=== PATIENT | female | born 2000 | race Caucasian/White ===

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

== ENCOUNTER 2024-01-24 06:27 | Emergency (ER) | payer OTHER ==
[2024-01-24 06:45] VITALS: TEMP 97.4; O2SAT 100
[2024-01-24 06:50] LABS: HCG URINE TEST NEGATIVE (NEGATIVE)
[2024-01-24 06:50] LABS: Appearance Cloudy (Clear); Bilirubin Negative (Negative); Blood Negative (Negative); Glucose, Urine Negative (Negative); Ketones Negative (Negative); Leukocyte Esterase Negative (Negative); Nitrite Negative (Negative); Protein,Urine Dip Negative (Negative); Specific Gravity 1.025 (1.005-1.030)
[2024-01-24 06:55] LABS: Bacteria None Seen /HPF (None Seen); Epithelial Cells None Seen /HPF (None Seen); Hyaline Casts NONE SEEN /LPF (0-2); RBC 0-2 /HPF (0-5); WBC 0-2 /HPF (0-5)
[2024-01-24 06:57] LABS: ADD URINE CULTURE? NO (NO)
[2024-01-24] MEDS ORDERED: ZOFRAN ODT 4 MG ONE (07:42)
[2024-01-24] MEDS: ZOFRAN ODT 4 MG PO ONE (07:43)
[2024-01-24 07:47] VITALS: BP 105/69; PULSE 70; RESP 17
--- NOTE | 2024-01-24 07:47 | ERPHSYRPT ---
- History of Present Illness Time Seen by Provider: 01/24/24 07:15 Source: patient, family Exam Limitations: no limitations Patient Subjective Stated Complaint: Period cramps Triage Nursing Assessment: Patient ambulated back to ED and transferred self to bed. Patient A+O X3. Patient's skin pink, warm and dry. Patient complains of menstrual cramps to lower abdomen/pelvic area 10/10. Patient states the pain started 0300 and patient got into hot bath. Patient states she was having N/V and was afraid she was going to pass out. Physician History: This is a 23-year-old white female patient who has been having significant menstrual cramping over the last year. She has not yet seen a block placer. 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 She is currently on her menstrual period. She did not take any Tylenol or ibuprofen this morning because she felt to nauseated. Patient is declining intravenous line placement and IV fluids. She is also declining obtaining blood work or CT scan of her abdomen and pelvis. She just wants her urine checked for a urinary tract infection. Timing/Duration: worse, other (Chronic monthly for a year during the time of her menstrual period) Activites at Onset: none Quality: cramping Onset Location: suprapubic (Bilaterally) Pain Radiation: none Severity of Pain-Max: moderate Severity of Pain-Current: mild Prior abdominal problems: none Sexual intercourse history: non-contributory Modifying Factors: Improves With: vomiting (Once this morning) Associated Symptoms: abdominal pain (In the area of her ovaries bilaterally) Allergies/Adverse Reactions: cephalexin Allergy (Verified 01/24/24 06:35) Rash Sulfa (Sulfonamide Antibiotics) Allergy (Verified 01/24/24 06:35) Hx Tetanus, Diphtheria Vaccination/Date Given: Yes Hx Influenza Vaccination/Date Given: No Hx Pneumococcal Vaccination/Date Given: No Travel Risk - International Travel Have you traveled outside of the country in past 3 weeks: No - Emerging Infectious Disease Are you exhibiting symptoms associated with any current EIDs: No - Review of Systems Constitutional: No Symptoms Eyes: No Symptoms Ears, Nose, & Throat: No Symptoms Respiratory: No Symptoms Cardiac: No Symptoms Abdominal/Gastrointestinal: Other (Mild tenderness bilateral lower quadrants last suprapubic regions) Genitourinary Symptoms: No Symptoms Musculoskeletal: No Symptoms Skin: No Symptoms Neurological: No Symptoms Psychological: No Symptoms Endocrine: No Symptoms Hematologic/Lymphatic: No Symptoms - Past Medical History Pertinent Past Medical History: No Neurological History: No Pertinent History ENT History: No Pertinent History Cardiac History: No Pertinent History Respiratory History: No Pertinent History Endocrine Medical History: No Pertinent History Musculoskeletal History: No Pertinent History GI Medical History: No Pertinent History History: No Pertinent History Psycho-Social History: No Pertinent History Female Reproductive Disorders: No Pertinent History - Past Surgical History Past Surgical History: No Neuro Surgical History: No Pertinent History Cardiac: No Pertinent History Respiratory: No Pertinent History Gastrointestinal: No Pertinent History Genitourinary: No Pertinent History Musculoskeletal: No Pertinent History Female Surgical History: No Pertinent History - Female History Hx Last Menstrual Period: currently Hx Now: No - Social History Smoking Status: Never smoker Exposure to second hand smoke: Yes Drug Use: none Patient Lives Alone: No - Nursing Vital Signs Nursing Vital Signs: Initial Vital Signs Temperature 97.4 F 01/24/24 06:36 Pulse Rate 72 01/24/24 06:36 Respiratory Rate 18 01/24/24 06:36 Blood Pressure 110/72 01/24/24 06:36 O2 Sat by Pulse Oximetry 100 01/24/24 06:36 Pain Scale Pain Intensity 10 - Physical Exam General Appearance: no apparent distress, alert, anxiety, thin Eye Exam: PERRL/EOMI, eyes nml inspection Ears, Nose, Throat Exam: normal ENT inspection, moist mucous membranes Neck Exam: normal inspection, non-tender, supple, full range of motion Respiratory Exam: normal breath sounds, lungs clear, airway intact, No chest tenderness, No respiratory distress Cardiovascular Exam: regular rate/rhythm, normal heart sounds, normal peripheral pulses Gastrointestinal/Abdomen Exam: soft, normal bowel sounds, tenderness (Mild tenderness overlying her ovaries bilaterally without rebound) Pelvic Exam: not done Rectal Exam: not done Back Exam: normal inspection, normal range of motion, No CVA tenderness, No vertebral tenderness Extremity Exam: normal inspection, normal range of motion, pelvis stable Neurologic Exam: alert, oriented x 3, 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, 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, normal mood/affect, nml cerebellar function, nml station & gait, sensation nml Skin Exam: normal color, warm, dry Lymphatic Exam: No adenopathy SpO2 Interpretation: normal SpO2: 100 O2 Delivery: Room Air - Course Nursing assessment & vital signs reviewed: Yes Ordered Tests: Active Orders 24 hr Category Date Time Status HCG QUALITATIVE, URINE Stat Lab 01/24/24 06:49 Completed UA W/RFX UR CULTURE Stat Lab 01/24/24 06:42 Completed Medication Summary Discontinued Medications Generic Name Dose Route Start Last Admin Trade Name Fe PRN Reason Stop Dose Admin Ondansetron HCl 4 mg 01/24/24 07:38 Zofran 4 Mg/Udtablet Orally Disintegrating PO 01/24/24 07:39 STAT ONE Lab/Rad Data: Laboratory Results 01/24/24 01/24/24 Range/Units 06:49 06:42 Urine Color Yellow (Yellow) Urine Appearance Cloudy A (Clear) Urine pH 7.0 (4.6-8.0) Ur Specific [place] 1.025 (1.005-1.030) Urine Protein Negative (Negative) Urine Glucose (UA) Negative (Negative) mg/dL Urine Ketones Negative (Negative) Urine Blood Negative (Negative) Urine Nitrite Negative (Negative) Urine Bilirubin Negative (Negative) Urine Urobilinogen 1.0 A (0.2) mg/dL Ur Leukocyte Esterase Negative (Negative) U Hyaline Cast (Auto) NONE SEEN (0-2) /LPF Urine Microscopic RBC 0-2 (0-5) /HPF Urine Microscopic WBC 0-2 (0-5) /HPF Ur Epithelial Cells None Seen (None Seen) /HPF Urine Bacteria None Seen (None Seen) /HPF Urine Culture Reflexed NO (NO) Urine HCG, Qual NEGATIVE (NEGATIVE) - Progress Progress: improved Progress Note: 01/24/24 07:45 This patient's medical issue is 1 of low complexity. Patient's workup that was performed today is primarily based on patient's desire to only have a urinalysis performed. She does not want any intravenous line placement or intravenous fluid. She does not want any blood draws or CAT scan of the abdomen pelvis. Clinically, I do not feel she has an acute surgical abdomen but I did offer the above and she declines. She will except a single dose of Zofran and ODT. I interpreted the laboratory data results. Her urine is free of infection and free of evidence of dehydration. Patient is going to call her block placer today and make arrangements for follow-up appointment Blood Culture(s) Obtained: No Antibiotics given: No Counseled pt/family regarding: lab results, diagnosis, need for follow-up Medical Desision Making - Independent Historian Additional History obtained from: Family - Diagnostic Testing Diagnostic test were ordered, analyzed, and reviewed by me: Yes - Risk of complications The pt has a mod risk of morbidity or mortality based on: Need for prescription drug management - Departure Departure Disposition: Home Clinical Impression: Crampy pain associated with menses Condition: Stable Critical Care Time: No Referrals: BAILEY CARRIZALES NP [Primary Care Provider] - Follow up/PCP as directed Additional Instructions: Drink plenty of clear liquids prior to advancing your diet. Use Tylenol 650 mg orally every 4-6 hours as needed for pain control. In addition, may add 400 to 600 mg ibuprofen with food every 6-8 hours as needed for pain control. Call a block placer today, 01/24/2024, to make a follow-up appointment in the next 2 to 3 days. Return to the emergency department if symptoms worsen Prescriptions: Ondansetron ODT 4 MG [Zofran Odt 4 mg] 4 mg PO Q6H PRN PRN #10 tablet PRN Reason: Vomiting
== END 2024-01-24 07:45 | disposition home or self-care (01) ==
LOC: ED 06:27
DX: N94.6 Dysmenorrhea, unspecified (principal); R11.2 Nausea with vomiting, unspecified
CPT/HCPCS: 81001; 81025; 99283; Q0162

== ENCOUNTER 2024-06-15 05:12 | Emergency (ER) | payer OTHER ==
[2024-06-15 05:37] VITALS: TEMP 98.5
[2024-06-15] MEDS ORDERED: EMLA Cream 5 GM TP ONE (05:56)
[2024-06-15] MEDS ORDERED: XYLOCAINE 1% HCL 20 ML MDV ONE (05:56)
[2024-06-15] MEDS: EMLA Cream 5 GM TP ONE (05:59)
[2024-06-15] MEDS ORDERED: NORCO 5/325 MG ONE (06:57)
[2024-06-15] MEDS: XYLOCAINE 1% HCL 20 ML MDV IJ ONE (06:57)
--- NOTE | 2024-06-15 07:00 | ERPHSYRPT ---
- History of Present Illness Time Seen by Provider: 06/15/24 05:40 Source: patient, family Exam Limitations: no limitations Patient Subjective Stated Complaint: pt states she has swelling in her pelvic area, started approx 3 weeks ago and is very painful Triage Nursing Assessment: pt alert and oreinted. answers questions approp. pt ambulates to room with steady gait. respirations nonlabored. skin warm and dry. redness, warmth, tenderness, and firmness to rt labia. Physician History: This is a 23-year-old white female patient who has a known right vulvar Bartholin cyst. It is been present for 3 weeks and despite clindamycin and doxycycline antibiotics, the cyst is enlarging and is tender. Patient has never had anything like this in the past. Patient does not have fever or chills. Timing/Duration: week(s) (3), worse Quality: painful Severity: moderate Location: other (Right vulvar Bartholin cyst) Possible Causes: no cause identified Associated Symptoms: swelling/mass/lumps (Bartholin cyst, tender right vulva) Allergies/Adverse Reactions: cephalexin Allergy (Verified 06/15/24 05:37) Rash Sulfa (Sulfonamide Antibiotics) Allergy (Verified 06/15/24 05:37) Home Medications: Doxycycline Hyclate 100 mg [Vibramycin 100 MG] 100 mg PO BID 06/15/24 [History] Hx Tetanus, Diphtheria Vaccination/Date Given: Yes Hx Influenza Vaccination/Date Given: No Hx Pneumococcal Vaccination/Date Given: No Immunizations Up to Date: Yes Travel Risk - International Travel Have you traveled outside of the country in past 3 weeks: No - Emerging Infectious Disease Are you exhibiting symptoms associated with any current EIDs: No - Review of Systems Constitutional: No Symptoms Eyes: No Symptoms Ears, Nose, & Throat: No Symptoms Respiratory: No Symptoms Cardiac: No Symptoms Abdominal/Gastrointestinal: No Symptoms Genitourinary Symptoms: Other (Pain swelling right vulva) Musculoskeletal: No Symptoms Skin: No Symptoms Neurological: No Symptoms Psychological: No Symptoms Endocrine: No Symptoms Hematologic/Lymphatic: No Symptoms Immunological/Allergic: No Symptoms All Other Systems: Reviewed and Negative - Past Medical History Pertinent Past Medical History: No Neurological History: No Pertinent History ENT History: No Pertinent History Cardiac History: No Pertinent History Respiratory History: No Pertinent History Endocrine Medical History: No Pertinent History Musculoskeletal History: No Pertinent History GI Medical History: No Pertinent History History: No Pertinent History Psycho-Social History: No Pertinent History Female Reproductive Disorders: No Pertinent History - Past Surgical History Past Surgical History: No Neuro Surgical History: No Pertinent History Cardiac: No Pertinent History Respiratory: No Pertinent History Gastrointestinal: No Pertinent History Genitourinary: No Pertinent History Musculoskeletal: No Pertinent History Female Surgical History: No Pertinent History - Female History Hx Last Menstrual Period: 1st week may Hx Now: No - Social History Smoking Status: Never smoker Exposure to second hand smoke: Yes Drug Use: none Patient Lives Alone: No - Social Determinants of Health Will the patient participate in the screening: Declined to provide - Nursing Vital Signs Nursing Vital Signs: Initial Vital Signs Temperature 98.5 F 06/15/24 05:26 Pulse Rate 70 06/15/24 05:26 Respiratory Rate 18 06/15/24 05:26 Blood Pressure 126/78 06/15/24 05:26 O2 Sat by Pulse Oximetry 97 06/15/24 05:26 Pain Scale Pain Intensity 7 - Physical Exam General Appearance: mild distress, alert, anxiety, thin Eye Exam: PERRL/EOMI, eyes nml inspection Ears, Nose, Throat Exam: normal ENT inspection, moist mucous membranes Neck Exam: normal inspection, non-tender, supple, full range of motion Respiratory Exam: airway intact, No chest tenderness, No respiratory distress Gastrointestinal/Abdomen Exam: No tenderness Pelvic Exam: other (Right vulva tender swelling, abscess Bartholin cyst) Rectal Exam: not done Back Exam: normal inspection, normal range of motion, No CVA tenderness, No vertebral tenderness Extremity Exam: normal inspection, normal range of motion, pelvis stable Neurologic Exam: alert, oriented x 3, 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 Tender infected right vulva Bartholin cyst) Lymphatic Exam: No adenopathy SpO2 Interpretation: normal SpO2: 97 O2 Delivery: Room Air Procedures - Incision and Drainage Time of Procedure: 06:30 Site: Right vulva Bartholin cystinfected Anesthesia: 1% Lidocaine cc's of anesthesia: 2 (2.5 cc) Blade Size: 11 I & D Procedure: betadine prep, culture obtained Results: moderate amount pus Progress: Patient tolerated procedure well. Fluid was sent for culture and sensitivity. - Course Nursing assessment & vital signs reviewed: Yes Ordered Tests: Medication Summary Discontinued Medications Generic Name Dose Route Start Last Admin Trade Name Fe PRN Reason Stop Dose Admin Lidocaine HCl Confirm 06/15/24 05:56 Lidocaine Hcl 1% 20 Ml Mdv 20 Ml Ml Administered 06/15/24 05:57 Dose 3 ml .ROUTE .STK-MED ONE Lidocaine HCl 3 ml 06/15/24 06:10 Lidocaine Hcl 1% 20 Ml Mdv 20 Ml Ml IJ 06/15/24 06:11 STAT ONE Lidocaine/Prilocaine 2.5 gm 06/15/24 05:53 06/15/24 05:59 Lidocaine/Prilocaine 5 Gm 5 Gm Tube TP 06/15/24 05:54 2.5 gm STAT ONE Administration Lidocaine/Prilocaine Confirm 06/15/24 05:56 Lidocaine/Prilocaine 5 Gm 5 Gm Tube Administered 06/15/24 05:57 Dose 5 gm TP .STK-MED ONE - Progress Progress: improved, pain not gone completely, re-examined Progress Note: 06/15/24 06:59 My medical decision making and the assignment of low complexity to this patient's medical issue today is based on review of the patient's past medical history, review of the patient's medication list, review patient drug allergy list, history present illness and physical findings on examination. The fluid drained from the Bartholin cyst was sent for culture and sensitivity. No other laboratory radiographic studies are necessary. Counseled pt/family regarding: diagnosis, need for follow-up Medical Desision Making - Independent Historian Additional History obtained from: Family - Diagnostic Testing Diagnostic test were ordered, analyzed, and reviewed by me: Yes - Risk of complications The pt has a mod risk of morbidity or mortality based on: Need for prescription drug management - Departure Departure Disposition: Home Clinical Impression: Infected cyst of Bartholin gland duct Condition: Stable Critical Care Time: No Referrals: BAILEY CARRIZALES NP [Primary Care Provider] - Follow up/PCP as directed Additional Instructions: Sitz bath 3 times a day as discussed with either warm soapy water or warm Epsom salts. After each washing blot dry use a division chair to site. Do not apply lotion ointments or creams to the area. Add ibuprofen 600 mg orally 3 times a day for the next 5 days. Cover the site after each washing and drying with a terrence-pad. Call your primary care provider on 06/17/2024 to make arrange for follow-up to be seen in the next 2 to 3 days. Continue your antibiotics as prescribed Prescriptions: Hydrocodone/APAP 5/325 [[place] 5/325 mg] 1 each PO Q8H PRN PRN #6 tablet MDD 3 PRN Reason: Pain
[2024-06-15] MEDS: NORCO 5/325 MG PO ONE (07:01)
[2024-06-15] MEDS ORDERED: MORPHINE SULFATE 4 MG INJ ONE (07:33)
[2024-06-15] MEDS: MORPHINE SULFATE 4 MG INJ IM ONE (07:36)
[2024-06-15 07:54] VITALS: BP 132/99; PULSE 104; RESP 18
[2024-06-15 08:06] VITALS: O2SAT 98
== END 2024-06-15 08:23 | disposition home or self-care (01) ==
LOC: ED 05:12
DX: N75.0 Cyst of Bartholin's gland (principal); Z79.891 Long term (current) use of opiate analgesic; Z79.899 Other long term (current) drug therapy
CPT/HCPCS: 56420; 87070; 87077; 87186; 96372; 99283; J2270; A9270-GY

== ENCOUNTER 2024-06-15 23:14 | Emergency (ER) | payer OTHER ==
[2024-06-15 23:40] VITALS: PULSE 107; RESP 18; TEMP 98.7
[2024-06-16] MEDS ORDERED: MORPHINE SULFATE 4 MG INJ ONE (00:04)
[2024-06-16] MEDS ORDERED: Zofran 4 MG/2 ML VIAL ONE (00:04)
[2024-06-16] MEDS ORDERED: CLINDAMYCIN-D5W 600 MG/50 ML*** 600 MG/50 ML BAG IV ONE (00:04)
[2024-06-16 00:06] LABS: Absolute Neutrophil Ct (ANC) 12.32 x10^3/uL (1.56-6.13); BASOPHIL % 0.2 % (0.1-1.2); Basophil (Absolute #) 0.03 x10^3/uL (0.01-0.08); Eosinophil % 0.7 % (0.7-5.8); Eosinophil (Absolute #) 0.11 x10^3/uL (0.04-0.36); Hematocrit 36.1 % (34.1-44.9); IMMATURE GRAN # 0.05 x10^3u/L (0.001-0.031); IMMATURE GRAN % 0.3 % (0.001-0.429); Lymphocyte (Absolute #) 2.94 x10^3/uL (1.18-3.74); Lymphocytes % 17.6 % (19.3-51.7); Mean Cell Volume 96.8 fL (79.4-94.8); Mean Corpuscular Hemoglobin 32.2 pg (25.6-32.2); Mean Corpuscular Hgb Concent. 33.2 g/dL (32.2-35.5); Mean Platelet Volume 8.7 fL (9.4-12.3); Monocyte (Absolute #) 1.25 x10^3/uL (0.24-0.86); Monocytes % 7.5 % (4.7-12.5); Neutrophil % 73.7 % (34.0-71.1); Platelet Count 373 x10^3/uL (182-369); Red Blood Count 3.73 x10^6/uL (3.93-5.22); Red Cell Distribution Width 11.9 % (11.7-14.4); White Blood Count 16.7 x10^3/uL (3.98-10.04)
[2024-06-16] MEDS: Zofran 4 MG/2 ML VIAL IV ONE (00:06)
[2024-06-16] MEDS: CLINDAMYCIN-D5W 600 MG/50 ML*** 600 MG/50 ML BAG IV STA (00:06)
[2024-06-16] MEDS: MORPHINE SULFATE 4 MG INJ IV ONE (00:06)
[2024-06-16 00:19] LABS: ALBUMIN 4.5 g/dL (3.5-5.0); ANION GAP 13.6 MEQ/L (5-15); BILIRUBIN,TOTAL 0.3 mg/dL (0.2-1.3); Calcium 9.7 mg/dL (8.4-10.2); Creatinine 1 0.62 mg/dL (0.52-1.04); EST GLOMERULAR FILTRATION RATE 129.9 ML/MIN; HCG SERUM TEST NEGATIVE (NEGATIVE); Potassium 4.1 mmol/L (3.5-5.1); Total Protein 8.2 g/dL (6.3-8.2)
--- NOTE | 2024-06-16 01:12 | ERPHSYRPT ---
- History of Present Illness Time Seen by Provider: 06/15/24 23:19 Source: patient Exam Limitations: no limitations Patient Subjective Stated Complaint: pt states she was seen here early this morning and had an abscess in her pelvic region drained and was dignoased with a bartholin gland cyst pt reports increased swelling this evening that has caused concern. pt reports minimal drainage and pain at this time. pt reports sitz baths help with the pain. Triage Nursing Assessment: pt is aox3, pupils perrl, afebrile, resps easy and non labored, cap refill < 3 seconds, radial pulses strong and equal, abd soft non tender, pt skin pink warm dry. pt has significant swelling to the right labia major and minora, pt also has small incision with minimal sanguineous drainage to the distal right labia majora. Physician History: 23-year-old female with infected Bartholin cyst drained early this morning in this ER, was discharged on pain medications presented back with increased swelling and pain despite taking pain medication and doing sitz bath. Patient reports her swelling size has almost tripled then when she left. Patient denies any fever or chills. No abdominal pain. No difficulty urination. Allergies/Adverse Reactions: cephalexin Allergy (Verified 06/15/24 23:40) Rash Sulfa (Sulfonamide Antibiotics) Allergy (Verified 06/15/24 23:40) Home Medications: Doxycycline Hyclate 100 mg [Vibramycin 100 MG] 100 mg PO BID 06/15/24 [History] Hx Tetanus, Diphtheria Vaccination/Date Given: Yes Hx Influenza Vaccination/Date Given: No Hx Pneumococcal Vaccination/Date Given: No Travel Risk - International Travel Have you traveled outside of the country in past 3 weeks: No - Emerging Infectious Disease Are you exhibiting symptoms associated with any current EIDs: No - Review of Systems Constitutional: No Symptoms Ears, Nose, & Throat: No Symptoms Respiratory: No Symptoms Cardiac: No Symptoms Abdominal/Gastrointestinal: No Symptoms Genitourinary Symptoms: Other (Labial swelling) Musculoskeletal: No Symptoms Skin: Cellulitis, Induration, Skin Lesions Neurological: No Symptoms Endocrine: No Symptoms Hematologic/Lymphatic: No Symptoms - Past Medical History Pertinent Past Medical History: No Neurological History: No Pertinent History ENT History: No Pertinent History Cardiac History: No Pertinent History Respiratory History: No Pertinent History Endocrine Medical History: No Pertinent History Musculoskeletal History: No Pertinent History GI Medical History: No Pertinent History History: No Pertinent History Psycho-Social History: No Pertinent History Female Reproductive Disorders: No Pertinent History Other Medical History: bartholin cyst - Past Surgical History Past Surgical History: No Neuro Surgical History: No Pertinent History Cardiac: No Pertinent History Respiratory: No Pertinent History Gastrointestinal: No Pertinent History Genitourinary: No Pertinent History Musculoskeletal: No Pertinent History Female Surgical History: No Pertinent History - Female History Hx Last Menstrual Period: 1st week may Hx Now: No - Social History Smoking Status: Never smoker Exposure to second hand smoke: Yes Drug Use: none Patient Lives Alone: No - Social Determinants of Health Will the patient participate in the screening: Declined to provide - Nursing Vital Signs Nursing Vital Signs: Initial Vital Signs Temperature 98.7 F 06/15/24 23:14 Pulse Rate 107 H 06/15/24 23:14 Respiratory Rate 18 06/15/24 23:14 Blood Pressure 130/78 06/15/24 23:14 O2 Sat by Pulse Oximetry 99 06/15/24 23:14 Pain Scale Pain Intensity 5 - Physical Exam General Appearance: no apparent distress Ears, Nose, Throat Exam: normal ENT inspection Neck Exam: normal inspection, full range of motion Respiratory Exam: normal breath sounds, lungs clear Cardiovascular Exam: regular rate/rhythm, normal heart sounds Gastrointestinal/Abdomen Exam: soft, normal bowel sounds, No tenderness Pelvic Exam: other (Diffuse swelling of right labia majora and minora with some firm consistency. No discharge. Warm and very tender to touch.) Extremity Exam: normal inspection, normal range of motion Neurologic Exam: alert, oriented x 3, cooperative Skin Exam: normal color SpO2 Interpretation: normal SpO2: 97 O2 Delivery: Room Air Ordered Tests: Active Orders 24 hr Category Date Time Status Lactic Acid Stat Lab 06/15/24 23:37 Completed Medication Summary Discontinued Medications Generic Name Dose Route Start Last Admin Trade Name Freq PRN Reason Stop Dose Admin Clindamycin HCl/Dextrose 600 mg in 50 mls @ 100 mls/hr 06/15/24 23:40 06/16/24 00:58 Clindamycin-D5w 600 Mg/50 Ml IV 06/16/24 00:09 Infused STAT STA Infusion Clindamycin HCl/Dextrose Confirm 06/16/24 00:04 Clindamycin-D5w 600 Mg/50 Ml Administered 06/16/24 00:05 Dose 600 mg in 50 mls @ ud IV .STK-MED ONE Morphine Sulfate 4 mg 06/15/24 23:37 06/16/24 00:06 Morphine Sulfate 4 Mg/Ml Injection IV 06/15/24 23:38 4 mg STAT ONE Administration Morphine Sulfate Confirm 06/16/24 00:04 Morphine Sulfate 4 Mg/Ml Injection Administered 06/16/24 00:05 Dose 4 mg .ROUTE .STK-MED ONE Ondansetron HCl 4 mg 06/15/24 23:37 06/16/24 00:06 Ondansetron Hcl 4 Mg/2 Ml Vial IV 06/15/24 23:38 4 mg STAT ONE Administration Ondansetron HCl Confirm 06/16/24 00:04 Ondansetron Hcl 4 Mg/2 Ml Vial Administered 06/16/24 00:05 Dose 4 mg .ROUTE .STK-MED ONE Lab/Rad Data: Laboratory Result Diagrams 06/15/24 00:04 06/15/24 00:04 Laboratory Results 06/16/24 06/15/24 06/15/24 Range/Units 00:10 00:04 00:04 WBC (3.98-10.04) x10^3/uL RBC (3.93-5.22) x10^6/uL Hgb (11.2-15.7) g/dL Hct (34.1-44.9) % MCV (79.4-94.8) fL MCH (25.6-32.2) pg MCHC (32.2-35.5) g/dL RDW (11.7-14.4) % Plt Count (182-369) x10^3/uL MPV (9.4-12.3) fL Gran % (34.0-71.1) % Immature Gran % (Auto) (0.001-0.429) % Nucleat RBC Rel Count (0.00-0.2) % Eos # (Auto) (0.04-0.36) x10^3/uL Immature Gran # (Auto) (0.001-0.031) x10^3u/L Absolute Lymphs (auto) (1.18-3.74) x10^3/uL Absolute Monos (auto) (0.24-0.86) x10^3/uL Absolute Nucleated RBC (0.00-0.012) x10^3u/L Lymphocytes % (19.3-51.7) % Monocytes % (4.7-12.5) % Eosinophils % (0.7-5.8) % Basophils % (0.1-1.2) % Absolute Granulocytes (1.56-6.13) x10^3/uL Basophils # (0.01-0.08) x10^3/uL Sodium 138 (135-145) mmol/L Potassium 4.1 (3.5-5.1) mmol/L Chloride 100 (98-107) mmol/L Carbon Dioxide 28 (22-30) mmol/L Anion Gap 13.6 (5-15) MEQ/L BUN 11 (7-17) mg/dL Creatinine 0.62 (0.52-1.04) mg/dL Estimated GFR 129.9 ML/MIN Glucose 100 (74-106) mg/dL Lactic Acid 1.3 (0.4-2.0) Calcium 9.7 (8.4-10.2) mg/dL Total Bilirubin 0.30 (0.2-1.3) mg/dL AST 24 (14-36) U/L ALT 16 (0-35) U/L Alkaline Phosphatase 62 (38-126) U/L Serum Total Protein 8.2 (6.3-8.2) g/dL Albumin 4.5 (3.5-5.0) g/dL Serum HCG, Qual NEGATIVE (NEGATIVE) 06/15/24 Range/Units 00:04 WBC 16.7 H (3.98-10.04) x10^3/uL RBC 3.73 L (3.93-5.22) x10^6/uL Hgb 12.0 (11.2-15.7) g/dL Hct 36.1 (34.1-44.9) % MCV 96.8 H (79.4-94.8) fL MCH 32.2 (25.6-32.2) pg MCHC 33.2 (32.2-35.5) g/dL RDW 11.9 (11.7-14.4) % Plt Count 373 H (182-369) x10^3/uL MPV 8.7 L (9.4-12.3) fL Gran % 73.7 H (34.0-71.1) % Immature Gran % (Auto) 0.3 (0.001-0.429) % Nucleat RBC Rel Count 0.0 (0.00-0.2) % Eos # (Auto) 0.11 (0.04-0.36) x10^3/uL Immature Gran # (Auto) 0.05 H (0.001-0.031) x10^3u/L Absolute Lymphs (auto) 2.94 (1.18-3.74) x10^3/uL Absolute Monos (auto) 1.25 H (0.24-0.86) x10^3/uL Absolute Nucleated RBC 0.00 (0.00-0.012) x10^3u/L Lymphocytes % 17.6 L (19.3-51.7) % Monocytes % 7.5 (4.7-12.5) % Eosinophils % 0.7 (0.7-5.8) % Basophils % 0.2 (0.1-1.2) % Absolute Granulocytes 12.32 H (1.56-6.13) x10^3/uL Basophils # 0.03 (0.01-0.08) x10^3/uL Sodium (135-145) mmol/L Potassium (3.5-5.1) mmol/L Chloride (98-107) mmol/L Carbon Dioxide (22-30) mmol/L Anion Gap (5-15) MEQ/L BUN (7-17) mg/dL Creatinine (0.52-1.04) mg/dL Estimated GFR ML/MIN Glucose (74-106) mg/dL Lactic Acid (0.4-2.0) Calcium (8.4-10.2) mg/dL Total Bilirubin (0.2-1.3) mg/dL AST (14-36) U/L ALT (0-35) U/L Alkaline Phosphatase (38-126) U/L Serum Total Protein (6.3-8.2) g/dL Albumin (3.5-5.0) g/dL Serum HCG, Qual (NEGATIVE) - Progress Progress: improved Air Movement: good Progress Note: 06/16/24 01:12 23-year-old with infected Bartholin cyst drained earlier in this ER presented back with increasing swelling and pain despite taking pain medications. Patient has diffuse swelling of right labia majora and [place] with increased tende rness, firm consistency, increased temperature. I believe she is having cellulitis and abscess which needs further drainage and possibly under GA. I have given her a dose of clindamycin IV. Workup showed white count of 16, unremarkable chemistries including normal lactate. I have discussed with Dr. Brar general surgeon who recommended consultation with [facility] and if not then patient needs to be transferred. I have discussed with Dr. Brice who does not do RESPIRATORY THERAPIST ASSISTANT surgical interventions and recommended patient to be transferred. I have discussed the risks results of workup and plan of transfer with patient and family and called [facility], patient is auto excepted on behalf of Dr. Lara. Blood Culture(s) Obtained: Yes Antibiotics given: Yes Discussed with DrAnder: Marco Arciniega Counseled pt/family regarding: lab results, diagnosis, need for follow-up Medical Desision Making - Independent Historian Additional History obtained from: Family (Dr. Barr/Dr. Nobles) - Discussion of managment Care discussed with:: specialist (Dr. Barr/Dr. Brice/Dr. Lara [facility]) Reviewed:: Test results Agreed on:: Treatment plan Will see patient: in ED - Diagnostic Testing Diagnostic test were ordered, analyzed, and reviewed by me: Yes - Risk of complications The pt has a mod risk of morbidity or mortality based on: Need for prescription drug management, Need for minor surgical intervention in patient with know risk factors - Departure Departure Disposition: Transfer Clinical Impression: Abscess of right genital labia Condition: Stable Critical Care Time: No Referrals: BAILEY CARRIZALES, MYKEL [Primary Care Provider] - Follow up/PCP as directed
[2024-06-16 02:04] VITALS: BP 106/66; O2SAT 98
== END 2024-06-16 02:17 | disposition short-term general hospital (02) ==
LOC: ED 23:14
DX: N76.4 Abscess of vulva (principal); Z79.899 Other long term (current) drug therapy
CPT/HCPCS: 36415; 80053; 83605; 84703; 85025; 87040; 96365; 96374; 96375; 99284; J2270; J2405

== ENCOUNTER 2025-09-03 07:50 | Emergency (ER) | payer OTHER ==
[2025-09-03 08:06] VITALS: TEMP 97.3
--- NOTE | 2025-09-03 08:19 | ERPHSYRPT ---
- History of Present Illness Patient Subjective Stated Complaint: patient states she had a cyst lanced monday by dr calixto, woke up this morning with bleeding to terrence area, patient states she has had this same cyst drained 4-5 times Triage Nursing Assessment: patient presents to ed via private vehicle, patient wheeled into ed via w/c, patient alert and oriented x 4, skin p/w/d, patient has moderate amount of bright red bleeding from perineum, patient rates pain 10/10, vitals wnl Physician History: Labial abscess, Had the area incised and drained on Monday, she continued to bleed from the site, she continued to have pain about the area, she has been using sitz bath, she continues taking her Augmentin as prescribed, her pain has increased, she is supposed to f/u monday of next week Timing/Duration: day(s) (2) Onset Location: other (labial) Severity of Pain-Max: moderate Severity of Pain-Current: moderate Sexual intercourse history: non-contributory Allergies/Adverse Reactions: cephalexin Allergy (Verified 09/03/25 07:57) Rash Sulfa (Sulfonamide Antibiotics) Allergy (Verified 09/03/25 07:57) Home Medications: Amoxicillin/Potassium Clav [Amox-Clav 500-125 mg Tablet] 1 tab PO DAILY 09/03/25 [History] Hx Tetanus, Diphtheria Vaccination/Date Given: Yes Hx Influenza Vaccination/Date Given: No Hx Pneumococcal Vaccination/Date Given: No Travel Risk - International Travel Have you traveled outside of the country in past 3 weeks: No - Emerging Infectious Disease Are you exhibiting symptoms associated with any current EIDs: No - Past Medical History Pertinent Past Medical History: No Neurological History: No Pertinent History ENT History: No Pertinent History Cardiac History: No Pertinent History Respiratory History: No Pertinent History Endocrine Medical History: No Pertinent History Musculoskeletal History: No Pertinent History GI Medical History: No Pertinent History History: No Pertinent History Psycho-Social History: No Pertinent History Female Reproductive Disorders: No Pertinent History Other Medical History: bartholin cyst - Past Surgical History Past Surgical History: Yes Neuro Surgical History: No Pertinent History Cardiac: No Pertinent History Respiratory: No Pertinent History Gastrointestinal: No Pertinent History Genitourinary: No Pertinent History Musculoskeletal: No Pertinent History Female Surgical History: No Pertinent History Other Surgical History: lymph nodes on right side removed - Female History Hx Last Menstrual Period: 08/08/25 Hx Now: No - Social History Smoking Status: Current every day smoker Exposure to second hand smoke: Yes Drug Use: none - Social Determinants of Health Will the patient participate in the screening: Yes Do you worry about a steady place to live?: No Do you have any problems with any of the following?: No known problems In the past 12 months,have you had to go without utilities?: No Transportation Issues: No Has anyone in your support network made you feel unsafe?: No Have you or anyone in your house had to go w/o enough food: No - Nursing Vital Signs Nursing Vital Signs: Initial Vital Signs Temperature 97.3 F 09/03/25 07:51 Pulse Rate 66 09/03/25 07:51 Respiratory Rate 14 09/03/25 07:51 Blood Pressure 111/61 09/03/25 07:51 O2 Sat by Pulse Oximetry 99 09/03/25 07:51 Pain Scale Pain Intensity 10 - Physical Exam Pelvic Exam: other (right labial swelling, abscess with incision, bleeding from site) Neurologic Exam: alert, oriented x 3, cooperative, normal mood/affect Skin Exam: normal color, warm, dry SpO2 Interpretation: normal SpO2: 99 Ordered Tests: Medication Summary Discontinued Medications Generic Name Dose Route Start Last Admin Trade Name Fe PRN Reason Stop Dose Admin Hydrocodone Bitart/Acetaminophen 1 tab 09/03/25 08:26 09/03/25 08:31 Hydrocodone/Apap 5/325 1 Tab Tablet PO 09/03/25 08:27 1 tab STAT ONE Administration Hydrocodone Bitart/Acetaminophen Confirm 09/03/25 08:30 Hydrocodone/Apap 5/325 1 Tab Tablet Administered 09/03/25 08:31 Dose 1 tab .ROUTE .STK-MED ONE Ibuprofen 600 mg 09/03/25 08:27 09/03/25 08:31 Ibuprofen 600 Mg Tablet PO 09/03/25 08:28 600 mg STAT ONE Administration Ibuprofen Confirm 09/03/25 08:29 Ibuprofen 600 Mg Tablet Administered 09/03/25 08:30 Dose 600 mg .ROUTE .STK-MED ONE - Departure Departure Disposition: Home Clinical Impression: Abscess of right genital labia Condition: Stable Critical Care Time: No Referrals: BAILEY CARRIZALES NP [Primary Care Provider, [facility]] - Follow up/PCP as directed Instructions: Abscess incision and drainage - ED discharge instructions Additional Instructions: ice area 10-15 min, 3-4 times a day, continue antibiotics, continue sitz bath, follow up as scheduled Forms: Work/School Release Form Prescriptions: Hydrocodone/APAP 5/325 [[place] 5/325 mg] 1 each PO Q6H PRN PRN #10 tablet MDD 4 PRN Reason: Pain Ibuprofen 600 mg PO TID PRN #15 tablet PRN Reason: Pain
[2025-09-03] MEDS ORDERED: MOTRIN 600 MG ONE (08:29)
[2025-09-03] MEDS ORDERED: NORCO 5/325 MG ONE (08:30)
[2025-09-03] MEDS: MOTRIN 600 MG PO ONE (08:31)
[2025-09-03] MEDS: NORCO 5/325 MG PO ONE (08:31)
[2025-09-03 08:59] VITALS: BP 113/68; PULSE 76; RESP 16; O2SAT 100
== END 2025-09-03 08:58 | disposition home or self-care (01) ==
LOC: ED 07:50
DX: N76.4 Abscess of vulva (principal); Z79.891 Long term (current) use of opiate analgesic; Z79.899 Other long term (current) drug therapy; Z72.0 Tobacco use